=== PATIENT | female | born 1960 | race Two or more races ===

== ENCOUNTER 2019-09-27 00:50 | Emergency (ER) | payer MEDICAID, OTHER ==
[~2019-09-27] VITALS: Ht 152.4 cm; Wt 46.3 kg
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
[2019-09-27] MEDS ORDERED: OLANZAPINE 5 MG TABLET ONE (01:12)
[2019-09-27] MEDS ORDERED: ACETAMINOPHEN ES 500 MG TABLET ONE (01:12)
[2019-09-27] MEDS ORDERED: MECLIZINE HCL 25 MG TABLET ONE (01:12)
--- NOTE | 2019-09-27 01:15 | NUR ---
NOAMI SISTER Addendum: 09/27/19 at 0118 by SHELLY CORRECTION, THIS IS PT OWN PHONE NUMBER
[2019-09-27 01:27] LABS: BASOPHILS % (AUTO) 0.3 % (0.0-2.0); EOSINOPHILS % (AUTO) 0.1 % (0.0-6.0); HEMATOCRIT 38 % (33-45); HEMOGLOBIN 12.7 g/dL (11.5-14.8); LYMPHOCYTES # (AUTO) 0.7 /CMM (0.8-4.8); LYMPHOCYTES % (AUTO) 6.9 % (20.0-44.0); MEAN CORPUSCULAR HGB CONC 34 g/dl (31.0-36.0); MEAN CORPUSCULAR VOLUME 88 fL (82-100); MONOCYTES # (AUTO) 0.5 /CMM (0.1-1.30); MONOCYTES % (AUTO) 4.9 % (2.0-12.0); NEUTROPHILS # (AUTO) 9.1 /CMM (1.8-8.9); NEUTROPHILS % (AUTO) 87.8 % (43.0-81.0); PLATELET COUNT (AUTO) 205 /CMM (150-450); RED BLOOD CELL COUNT(AUTO) 4.32 MIL/uL (4.0-5.2); WHITE BLOOD COUNT (AUTO) 10.4 K/uL (4.3-11.0)
[2019-09-27] MEDS ORDERED: OLANZAPINE 5 MG TABLET PO ONE (01:30)
[2019-09-27] MEDS ORDERED: ACETAMINOPHEN ES 500 MG TABLET PO ONE (01:30)
[2019-09-27] MEDS ORDERED: MECLIZINE HCL 12.5 MG TABLET PO ONE (01:30)
[2019-09-27 01:34] LABS: CALCIUM, SERUM 9.4 mg/dL (8.5-10.1); CARBON DIOXIDE 31 mmol/L (21-32); CHLORIDE 105 mmol/L (98-107); CREATININE 0.8 mg/dL (0.6-1.3); GLUCOSE 109 mg/dL (74-106); POTASSIUM 4.6 mmol/L (3.5-5.1); SODIUM SERUM 138 mmol/L (136-145); UREA NITROGEN, BLOOD 13 mg/dL (7-18)
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
[2019-09-27 01:40] LABS: ACETAMINOPHEN 0 ug/ml (10-30); ALANINE AMINOTRANSFERASE 29 U/L (12-78); ALBUMIN 3.6 g/dL (3.4-5.0); ALCOHOL, BLOOD < 3 mg/dL (0-0); ALKALINE PHOSPHATASE 85 U/L (46-116); ASPARTATE AMINOTRANSFERASE 22 U/L (15-37); BILIRUBIN,DIRECT 0.1 mg/dL (0.0-0.2); BILIRUBIN,TOTAL 0.3 mg/dL (0.2-1.0); TOTAL PROTEIN, SERUM 7.5 g/dL (6.4-8.2)
--- NOTE | 2019-09-27 02:00 | NUR ---
UNABLE TO REACH ANY FAMILY MEMBERS. PER DR. LACY, PT WILL BE ON ER-OBS FOR RE-EVAL AND POSSIBLE SW F/U.
--- NOTE | 2019-09-27 04:00 | NUR ---
PT MOVED TO BED 7, SITTER AT BEDSIDE
--- NOTE | 2019-09-27 05:25 | NUR ---
Patient is resting comfortably in bed with eyes closed. Easily aroused. VSS
--- NOTE | 2019-09-27 06:31 | NUR ---
pt moved to bed 13
--- NOTE | 2019-09-27 07:10 | NUR ---
REPORT GIVEN TO BEBE MONROY FOR [facility]
--- NOTE | 2019-09-27 07:11 | NUR ---
ENDORSEMENT RECEIVED FROM AMBER SPENCE FOR [facility]. PATIENT IN BED ASLEEP, EASILY AROUSABLE BY VOICE. HOOKED TO MONITOR. WILL CONTINUE TO MONITOR ACCORDINGLY. SITTER AT BEDSIDE FOR SAFETY
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
--- NOTE | 2019-09-27 09:01 | NUR ---
PATIENT IN BED ASLEEP, EASILY AROUSED BY VOICE, HOOKED TO MONITOR, BREATHING EVEN AND UNLABORED. WILL CONTINUE TO MONITOR ACCORDINGLY.
--- NOTE | 2019-09-27 11:54 | NUR ---
LUNCH TRAY PROVIDED. PATIENT TOLERATING PO WELL.
--- NOTE | 2019-09-27 12:08 | NUR ---
DIRECTOR OF VIDEO ANALYTICS QUINCY PERSAUD PT HAS BEEN REFFERED TO [facility] IN [place].
--- NOTE | 2019-09-27 12:14 | NUR ---
SW NOTE: Manager Internal spoke with Grisel at [facility] Intake ([phone]). Per Grisel, pt has been referred to [facility], and clinicals are being reviewed by charge coordinator at [facility]. Grisel to follow up with Manager Internal.
--- NOTE | 2019-09-27 13:16 | NUR ---
PATIENT WENT TO RESTROOM, AMBULATORY WITH UNSTEADY GAIT. ASSISTED BY SITTER.
--- NOTE | 2019-09-27 14:54 | NUR ---
SW NOTE: Air Pollution Compliance Inspector contacted [facility] Intake ([phone]) to follow-up on the status of the pt's referral. Per intake staff, pt's referral is still under review as of 1420. Air Pollution Compliance Inspector instructed staff member to contact Air Pollution Compliance Inspector at [phone] with an update by [phone], or ER staff after [phone]. Air Pollution Compliance Inspector endorsed updated information to ER NurseReggie.
--- NOTE | 2019-09-27 15:02 | NUR ---
PATIENT IN BED AWAKE, COMFORTABLE IN BED, VERBALIZES NON SENSICAL WORDS. ASKS WHAT TIME IS IT FREQUENTLY. HOOKED TO MONITOR, WILL CONTINUE TO MONITOR ACCORDINGLY. SITTER AT BEDSIDE FOR SAFETY
--- NOTE | 2019-09-27 17:06 | NUR ---
PATIENT IN BED AWAKE, COMFORTABLE IN BED, HOOKED TO MONITOR, WILL CONTINUE TO MONITOR ACCORDINGLY. SITTER AT BEDSIDE FOR SAFETY
--- NOTE | 2019-09-27 19:02 | NUR ---
PATIENT IN BED AWAKE, HOOKED TO MONITOR, NO DISTRESS NOTED. WILL CONTINUE TO MONITOR ACCORDINGLY. SITTER AT BEDSIDE FOR SAFETY.
--- NOTE | 2019-09-27 19:18 | NUR ---
REPORT GIVEN TO AM[facility] SPENCE [facility]
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
--- NOTE | 2019-09-27 22:56 | NUR ---
30 ETA FOR [facility] TRIP#[id number]
--- NOTE | 2019-09-27 23:29 | NUR ---
REPORT GIVEN TO HOLLY Rayo FOR TRANSPORTATION [facility]
--- NOTE | 2019-09-27 23:40 | NUR ---
SPOKE WITH ATILIO FROM [facility], ATTEMPTED TO GIVE REPORT BUT WAS INFORMED NO BED AVAILABLE FOR THIS PATIENT. WILL FOLLOW UP
--- NOTE | 2019-09-27 23:46 | NUR ---
SPOKE WITH CJ FROM INTAKE TO INFORM OF NO BED AVAILABLE AT [facility]
--- NOTE | 2019-09-28 00:13 | NUR ---
REPORT GIVEN TO ATILIO FROM [facility] FOR [facility]
[2019-09-28 00:16] VITALS: BP 153/79
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
== END 2019-09-28 00:18 | disposition short-term general hospital (02) ==
LOC: ER 00:51
DX: S00.83XA Contusion of other part of head, initial encounter (principal); F22 Delusional disorders; X58.XXXA Exposure to other specified factors, initial encounter; Y93.89 Activity, other specified; Y92.89 Other specified places as the place of occurrence of the external cause; Y99.8 Other external cause status
CPT/HCPCS: 36415; 70450; 80048; 80076; 80305; 80307; 80329; 85025; 99285; G0480; J8597